=== PATIENT | male | born 1955 | race African-American/Black ===

== ENCOUNTER 2022-06-07 03:19 | Emergency (ER) | payer MEDICARE, BC ==
[2022-06-07] MEDS ORDERED: Morphine 4 MG/ML VIAL ONE (04:14)
[2022-06-07] MEDS ORDERED: Ondansetron PF 4 MG/2 ML Vial ONE (04:15)
[2022-06-07 04:39] LABS: Bilirubin Neg (Negative); Blood, Urine 150 (Negative); Clarity Cloudy (Clear); Glucose, Urine (Dipstick) Normal (Negative); Ketone, Urine Negative (Negative); Leukocyte 500 (Negative); Nitrite Negative (Negative); Protein, Urine (Dipstick) 30 mg/dl (Neg-Trace); Urobilinogen Normal mg/dL (Less than 2)
[2022-06-07 04:49] LABS: Bacteria/HPF 2+ HPF (None Seen); Squamous Epithelial 0-3 HPF (0-3); WBC/HPF Greater Than 50 HPF (0-3)
[2022-06-07 04:57] LABS: ALT (SGPT) Less than 6 U/L (8-55); AST (SGOT) 10 U/L (5-34); Albumin 3.2 g/dL (3.4-4.8); Alkaline Phosphatase 78 U/L (40-110); Anion Gap 17 mmol/L (10-20); BUN (Urea Nitrogen) 9 mg/dL (8.4-25.7); Bilirubin, Total 0.4 mg/dL (0.2-1.2); CK (CPK) 18 U/L (30-200); Calc. Creatinine Clearance 0 mL/min (70-130); Calcium 9.1 mg/dL (7.8-10.44); Carbon Dioxide 23 mmol/L (23-31); Chloride 103 mmol/L (98-107); Estimated GFR 66; Globulin 3.9 g/dL (2.4-3.5); Glucose 127 mg/dL (80-115); Magnesium 2.2 mg/dL (1.6-2.6); Potassium 3.6 mmol/L (3.5-5.1); Protein, Total 7.1 g/dL (5.8-8.1); Sodium 139 mmol/L (136-145)
[2022-06-07 04:58] LABS: #Eosinphils 0.3 10x3/uL (0.0-0.5); #Neutrophils 6.9 10x3/uL (1.5-8.4); %Basophils 0.4 % (0.0-2.0); %Eosinophils 3.2 % (0.0-6.0); %Lymphocytes 8.1 % (18.0-47.0); %Monocytes 11.1 % (0.0-10.0); %Neutrophils 76.8 % (40.0-75.0); Hemoglobin 9.2 g/dL (13.5-17.5); Mean Corpuscular HGB CONC 33.5 g/dL (32.0-36.0); Mean Corpuscular Hemoglobin 24.7 pg (27.0-33.0); Mean Corpuscular Volume 73.9 fl (81.2-95.1); Mean Platelet Volume 9.4 fl (7.4-10.4); Platelet Count 349 10x3/uL (150-450); RBC Distribution Width 22.7 % (11.5-14.5); Red Blood Cell (RBC) Count 3.72 10x6/uL (4.32-5.72); White Blood Cell (WBC) Count 8.9 10x3/uL (3.5-10.5)
[2022-06-07 05:13] LABS: Lipase Less than 4 U/L (8-78)
[2022-06-07] MEDS ORDERED: Iopamidol 300 61% 100 ML VIAL FS ONE (16:04)
== END 2022-06-07 07:25 | disposition home or self-care (01) ==
LOC: CSHERS 03:19
DX: N39.0 Urinary tract infection, site not specified (principal); F17.210 Nicotine dependence, cigarettes, uncomplicated
CPT/HCPCS: 74177; 80053; 81003; 81015; 82550; 83690; 83735; 85025; 96374; 96375; J2270; J2405; Q9967

== ENCOUNTER 2022-06-19 13:27 | Inpatient (IN) | payer MEDICARE, BC ==
[2022-06-19] MEDS ORDERED: Piperacillin/Tazobactam 3.375 GM VIAL ONE (14:12)
[2022-06-19 14:26] LABS: #Monocytes 0.1 10x3/uL (0.0-1.1); #Neutrophils 5.9 10x3/uL (1.5-8.4); %Basophils 0.1 % (0.0-2.0); %Eosinophils 0.4 % (0.0-6.0); %Neutrophils 86.1 % (40.0-75.0); Hemoglobin 8.9 g/dL (13.5-17.5); Mean Corpuscular HGB CONC 32.8 g/dL (32.0-36.0); Mean Corpuscular Hemoglobin 24.6 pg (27.0-33.0); Mean Corpuscular Volume 74.9 fl (81.2-95.1); Mean Platelet Volume 9.3 fl (7.4-10.4); Platelet Count 402 10x3/uL (150-450); RBC Distribution Width 22.8 % (11.5-14.5); Red Blood Cell (RBC) Count 3.62 10x6/uL (4.32-5.72); White Blood Cell (WBC) Count 6.9 10x3/uL (3.5-10.5)
[2022-06-19 14:27] LABS: ALT (SGPT) 8 U/L (8-55); AST (SGOT) 8 U/L (5-34); Albumin 3.1 g/dL (3.4-4.8); Alkaline Phosphatase 79 U/L (40-110); Anion Gap 14 mmol/L (10-20); BUN (Urea Nitrogen) 15 mg/dL (8.4-25.7); Bilirubin, Total 0.5 mg/dL (0.2-1.2); CRP (Inflammatory) 12.04 mg/dL (= or < 0.5); Calc. Creatinine Clearance 0 mL/min (70-130); Calcium 8.7 mg/dL (7.8-10.44); Carbon Dioxide 27 mmol/L (23-31); Chloride 102 mmol/L (98-107); Estimated GFR 80; Globulin 3.8 g/dL (2.4-3.5); Glucose 137 mg/dL (80-115); Protein, Total 6.9 g/dL (5.8-8.1); Sodium 140 mmol/L (136-145)
[2022-06-19 14:31] LABS: Potassium 2.8 mmol/L (3.5-5.1)
[2022-06-19 14:59] LABS: SARS-CoV-2 NAA Rapid Test Not Detected (NotDetected)
[2022-06-19] MEDS ORDERED: predniSONE 20 MG TAB ONE (15:23)
[2022-06-19 15:24] LABS: Anisocytosis SLIGHT = 6-15 cells (100X) (0-5/hpf)
[2022-06-19 15:25] LABS: Hypochromia SLIGHT = 6-15 cells (100X) (0-5/hpf); Microcytosis SLIGHT = 6-15 cells (100X) (0-5/hpf); Schistocytes SLIGHT = 2-5 cells (100X) (0-1/hpf)
[2022-06-19 15:28] LABS: Platelet Clumps SLIGHT
[2022-06-19 15:29] LABS: Platelet Morphology Comment Appears Increased
[2022-06-19] MEDS ORDERED: Potassium Chloride 20 MEQ TAB ONE (15:38)
[2022-06-19] MEDS ORDERED: Magnesium 2 GM/50 ML BAG (IN WATER) ONE (15:38)
[2022-06-19 15:39] LABS: Bilirubin Neg (Negative); Blood, Urine 150 (Negative); Glucose, Urine (Dipstick) Normal (Negative); Ketone, Urine Negative (Negative); Leukocyte 500 (Negative); Nitrite Negative (Negative); Protein, Urine (Dipstick) 100 mg/dl (Neg-Trace)
[2022-06-19] MEDS ORDERED: Potassium Chloride 20 MEQ/100 ML PREMIX BAG ONE (15:39)
[2022-06-19 15:45] LABS: Bacteria/HPF 2+ HPF (None Seen); Squamous Epithelial 0-3 HPF (0-3); WBC/HPF 21-50 HPF (0-3)
[2022-06-19] MEDS ORDERED: Electrolyte Replacement Protocol 1 EACH FS PRN (19:00)
[2022-06-19 19:48] VITALS: BMI 19.9
[2022-06-19] MEDS: Morphine 2 MG/ML VIAL SLOW IVP PRN (19:59)
[2022-06-19] MEDS: Acetaminophen 325 MG TAB PO PRN (20:00)
[2022-06-19] MEDS ORDERED: Piperacillin/Tazobactam 3.375 GM in Sodium Chloride 0.9% 100 ML IVPB SCH (21:00)
[2022-06-19 23:08] LABS: Potassium 3.7 mmol/L (3.5-5.1)
[2022-06-20] MEDS: Piperacillin/Tazobactam 3.375 GM in Sodium Chloride 0.9% 100 ML IVPB SCH ×3 (00:57→16:32)
[2022-06-20] MEDS: Acetaminophen 325 MG TAB PO PRN (01:02)
[2022-06-20] MEDS ORDERED: Ondansetron PF 4 MG/2 ML Vial IVP PRN (01:15)
[2022-06-20] MEDS ORDERED: Ondansetron ODT 4 MG TAB SL PRN (01:15)
[2022-06-20] MEDS ORDERED: Vancomycin HCl 1 GM in Sodium Chloride 0.9% 250 ML 250 ML IVPB SCH ×2 (03:00→05:00)
[2022-06-20 05:28] LABS: #Eosinphils 0.1 10x3/uL (0.0-0.5); #Monocytes 0.1 10x3/uL (0.0-1.1); #Neutrophils 4.6 10x3/uL (1.5-8.4); %Basophils 0.3 % (0.0-2.0); %Eosinophils 1.6 % (0.0-6.0); %Lymphocytes 15.3 % (18.0-47.0); %Monocytes 2.3 % (0.0-10.0); Hemoglobin 7.2 g/dL (13.5-17.5); Mean Corpuscular HGB CONC 31.7 g/dL (32.0-36.0); Mean Corpuscular Volume 75.7 fl (81.2-95.1); Mean Platelet Volume 9.3 fl (7.4-10.4); Platelet Count 315 10x3/uL (150-450); RBC Distribution Width 22.9 % (11.5-14.5); White Blood Cell (WBC) Count 5.8 10x3/uL (3.5-10.5)
[2022-06-20 05:30] LABS: Anion Gap 12 mmol/L (10-20); BUN (Urea Nitrogen) 15 mg/dL (8.4-25.7); Calc. Creatinine Clearance 66 mL/min (70-130); Calcium 8.3 mg/dL (7.8-10.44); Carbon Dioxide 25 mmol/L (23-31); Chloride 111 mmol/L (98-107); Estimated GFR 88; Glucose 90 mg/dL (80-115); Potassium 3.3 mmol/L (3.5-5.1); Sodium 145 mmol/L (136-145)
[2022-06-20] MEDS ORDERED: Potassium Chloride 20 MEQ TAB PO SCH ×2 (05:45→09:45)
[2022-06-20 06:33] LABS: Hypochromia SLIGHT = 6-15 cells (100X) (0-5/hpf); Microcytosis SLIGHT = 6-15 cells (100X) (0-5/hpf); Platelet Morphology Comment Appears Adequate
[2022-06-20 06:38] LABS: Schistocytes SLIGHT = 2-5 cells (100X) (0-1/hpf)
[2022-06-20 06:39] LABS: Anisocytosis SLIGHT = 6-15 cells (100X) (0-5/hpf)
[2022-06-20] MEDS: Morphine 2 MG/ML VIAL SLOW IVP PRN (08:35)
[2022-06-20] MEDS: Enoxaparin Sodium 40 MG/0.4 ML SYRINGE SC SCH ×2 (08:35→08:37)
[2022-06-20] MEDS: HYDROcodone/Acetaminophen 5/325 mg Tablet PO PRN ×2 (13:25→19:46)
[2022-06-20] MEDS: Vancomycin HCl 750 MG in Sodium Chloride 0.9% 250 ML 250 ML IVPB SCH (15:59)
[2022-06-21] MEDS: Piperacillin/Tazobactam 3.375 GM in Sodium Chloride 0.9% 100 ML IVPB SCH ×3 (01:04→17:42)
[2022-06-21] MEDS: HYDROcodone/Acetaminophen 5/325 mg Tablet PO PRN ×3 (01:11→14:46)
[2022-06-21 04:34] LABS: #Eosinphils 0.1 10x3/uL (0.0-0.5); #Monocytes 0.1 10x3/uL (0.0-1.1); #Neutrophils 3.2 10x3/uL (1.5-8.4); %Basophils 0.7 % (0.0-2.0); %Eosinophils 1.8 % (0.0-6.0); %Lymphocytes 20.8 % (18.0-47.0); %Monocytes 2.3 % (0.0-10.0); %Neutrophils 73.5 % (40.0-75.0); Hemoglobin 6.9 g/dL (13.5-17.5); Mean Corpuscular HGB CONC 32.1 g/dL (32.0-36.0); Mean Corpuscular Hemoglobin 24.6 pg (27.0-33.0); Mean Corpuscular Volume 76.5 fl (81.2-95.1); Platelet Count 308 10x3/uL (150-450); RBC Distribution Width 22.6 % (11.5-14.5); Red Blood Cell (RBC) Count 2.81 10x6/uL (4.32-5.72); White Blood Cell (WBC) Count 4.3 10x3/uL (3.5-10.5)
[2022-06-21 04:43] LABS: CRP (Inflammatory) 7.53 mg/dL (= or < 0.5); Vancomycin, Trough 14.6 ug/mL
[2022-06-21 04:46] LABS: Anion Gap 13 mmol/L (10-20); BUN (Urea Nitrogen) 10 mg/dL (8.4-25.7); Calc. Creatinine Clearance 67 mL/min (70-130); Calcium 8.3 mg/dL (7.8-10.44); Carbon Dioxide 23 mmol/L (23-31); Chloride 112 mmol/L (98-107); Estimated GFR 89; Glucose 90 mg/dL (80-115); Potassium 3.6 mmol/L (3.5-5.1); Sodium 144 mmol/L (136-145)
[2022-06-21] MEDS: Vancomycin HCl 750 MG in Sodium Chloride 0.9% 250 ML 250 ML IVPB SCH ×2 (05:08→16:00)
[2022-06-21] MEDS ORDERED: Ondansetron ODT 4 MG TAB PO SCH (06:15)
[2022-06-21] MEDS: Enoxaparin Sodium 40 MG/0.4 ML SYRINGE SC SCH (07:57)
[2022-06-21] MEDS ORDERED: Magnesium 2 GM/50 ML(in water) 2 GM in Premix Bag 1 BAG IVPB SCH (08:00)
[2022-06-21] MEDS: Morphine 4 MG/ML VIAL SLOW IVP PRN (18:52)
[2022-06-21] MEDS: Senokot S 8.6-50 MG TAB PO SCH (23:20)
[2022-06-22] MEDS: Piperacillin/Tazobactam 3.375 GM in Sodium Chloride 0.9% 100 ML IVPB SCH ×3 (02:00→15:47)
[2022-06-22] MEDS: Morphine 4 MG/ML VIAL SLOW IVP PRN (02:25)
[2022-06-22 05:02] LABS: #Eosinphils 0.1 10x3/uL (0.0-0.5); #Monocytes 0.1 10x3/uL (0.0-1.1); #Neutrophils 3.6 10x3/uL (1.5-8.4); %Basophils 0.9 % (0.0-2.0); %Eosinophils 1.3 % (0.0-6.0); %Lymphocytes 18.2 % (18.0-47.0); %Neutrophils 75.7 % (40.0-75.0); Hemoglobin 7.7 g/dL (13.5-17.5); Mean Corpuscular Hemoglobin 25.2 pg (27.0-33.0); Mean Corpuscular Volume 76.4 fl (81.2-95.1); Mean Platelet Volume 9.5 fl (7.4-10.4); Platelet Count 277 10x3/uL (150-450); RBC Distribution Width 21.6 % (11.5-14.5); Red Blood Cell (RBC) Count 3.05 10x6/uL (4.32-5.72); White Blood Cell (WBC) Count 4.7 10x3/uL (3.5-10.5)
[2022-06-22 05:13] LABS: Anion Gap 12 mmol/L (10-20); BUN (Urea Nitrogen) 8 mg/dL (8.4-25.7); Calc. Creatinine Clearance 72 mL/min (70-130); Calcium 8.2 mg/dL (7.8-10.44); Carbon Dioxide 22 mmol/L (23-31); Chloride 112 mmol/L (98-107); Estimated GFR 95; Glucose 92 mg/dL (80-115); Potassium 3.4 mmol/L (3.5-5.1); Sodium 143 mmol/L (136-145)
[2022-06-22] MEDS: Vancomycin HCl 750 MG in Sodium Chloride 0.9% 250 ML 250 ML IVPB SCH ×2 (06:00→19:05)
[2022-06-22] MEDS ORDERED: Potassium Chloride 20 MEQ TAB PO SCH (08:00)
[2022-06-22] MEDS: Senokot S 8.6-50 MG TAB PO SCH ×2 (09:58→21:46)
[2022-06-22] MEDS: HYDROcodone/Acetaminophen 5/325 mg Tablet PO PRN ×3 (10:05→21:47)
[2022-06-23] MEDS: Piperacillin/Tazobactam 3.375 GM in Sodium Chloride 0.9% 100 ML IVPB SCH ×3 (00:29→16:15)
[2022-06-23] MEDS ORDERED: Sodium Chloride 0.9% 250 ML 250 ML ONE (05:04)
[2022-06-23] MEDS ORDERED: Vancomycin HCl 750 MG VIAL ONE (05:04)
[2022-06-23] MEDS: Vancomycin HCl 750 MG in Sodium Chloride 0.9% 250 ML 250 ML IVPB SCH ×2 (05:06→18:10)
[2022-06-23 05:10] LABS: #Eosinphils 0.1 10x3/uL (0.0-0.5); #Monocytes 0.3 10x3/uL (0.0-1.1); #Neutrophils 5.1 10x3/uL (1.5-8.4); %Basophils 0.5 % (0.0-2.0); %Eosinophils 1.4 % (0.0-6.0); %Lymphocytes 13.5 % (18.0-47.0); %Monocytes 4.5 % (0.0-10.0); %Neutrophils 79.6 % (40.0-75.0); Hemoglobin 7.9 g/dL (13.5-17.5); Mean Corpuscular HGB CONC 32.9 g/dL (32.0-36.0); Mean Corpuscular Hemoglobin 25.2 pg (27.0-33.0); Mean Corpuscular Volume 76.7 fl (81.2-95.1); Mean Platelet Volume 9.1 fl (7.4-10.4); Platelet Count 285 10x3/uL (150-450); RBC Distribution Width 22.4 % (11.5-14.5); Red Blood Cell (RBC) Count 3.13 10x6/uL (4.32-5.72); White Blood Cell (WBC) Count 6.4 10x3/uL (3.5-10.5)
[2022-06-23 05:24] LABS: ALT (SGPT) 6 U/L (8-55); AST (SGOT) 6 U/L (5-34); Albumin 2.7 g/dL (3.4-4.8); Alkaline Phosphatase 58 U/L (40-110); Anion Gap 10 mmol/L (10-20); BUN (Urea Nitrogen) 7 mg/dL (8.4-25.7); Bilirubin, Total 0.4 mg/dL (0.2-1.2); Calc. Creatinine Clearance 69 mL/min (70-130); Calcium 8.3 mg/dL (7.8-10.44); Carbon Dioxide 23 mmol/L (23-31); Chloride 109 mmol/L (98-107); Estimated GFR 91; Globulin 3.2 g/dL (2.4-3.5); Glucose 110 mg/dL (80-115); Potassium 3.4 mmol/L (3.5-5.1); Protein, Total 5.9 g/dL (5.8-8.1); Sodium 139 mmol/L (136-145)
[2022-06-23] MEDS: HYDROcodone/Acetaminophen 5/325 mg Tablet PO PRN ×4 (05:26→21:13)
[2022-06-23 05:40] LABS: Anisocytosis SLIGHT = 6-15 cells (100X) (0-5/hpf); Platelet Morphology Comment Appears Adequate
[2022-06-23] MEDS ORDERED: Magnesium 2 GM/50 ML(in water) 2 GM in Premix Bag 1 BAG IVPB SCH (08:00)
[2022-06-23] MEDS ORDERED: Potassium Chloride 20 MEQ TAB PO SCH (08:00)
[2022-06-23] MEDS: Senokot S 8.6-50 MG TAB PO SCH ×2 (08:07→21:22)
[2022-06-24] MEDS: Piperacillin/Tazobactam 3.375 GM in Sodium Chloride 0.9% 100 ML IVPB SCH ×2 (00:06→07:53)
[2022-06-24] MEDS: HYDROcodone/Acetaminophen 5/325 mg Tablet PO PRN ×2 (04:33→10:48)
[2022-06-24 05:04] LABS: #Eosinphils 0.2 10x3/uL (0.0-0.5); #Monocytes 0.3 10x3/uL (0.0-1.1); #Neutrophils 4.3 10x3/uL (1.5-8.4); %Basophils 0.5 % (0.0-2.0); %Eosinophils 2.8 % (0.0-6.0); %Lymphocytes 16.1 % (18.0-47.0); %Monocytes 5.9 % (0.0-10.0); %Neutrophils 74.4 % (40.0-75.0); Hemoglobin 8.3 g/dL (13.5-17.5); Mean Corpuscular HGB CONC 32.9 g/dL (32.0-36.0); Mean Corpuscular Hemoglobin 25.4 pg (27.0-33.0); Mean Corpuscular Volume 77.1 fl (81.2-95.1); Mean Platelet Volume 9.2 fl (7.4-10.4); Platelet Count 302 10x3/uL (150-450); RBC Distribution Width 22.6 % (11.5-14.5); Red Blood Cell (RBC) Count 3.27 10x6/uL (4.32-5.72); White Blood Cell (WBC) Count 5.8 10x3/uL (3.5-10.5)
[2022-06-24 05:11] LABS: Anion Gap 13 mmol/L (10-20); BUN (Urea Nitrogen) 7 mg/dL (8.4-25.7); Calc. Creatinine Clearance 60 mL/min (70-130); Calcium 8.5 mg/dL (7.8-10.44); Carbon Dioxide 23 mmol/L (23-31); Chloride 108 mmol/L (98-107); Estimated GFR 77; Glucose 120 mg/dL (80-115); Magnesium 2.2 mg/dL (1.6-2.6); Potassium 3.6 mmol/L (3.5-5.1); Sodium 140 mmol/L (136-145); Vancomycin, Trough 21.4 ug/mL
[2022-06-24] MEDS: Vancomycin HCl 750 MG in Sodium Chloride 0.9% 250 ML 250 ML IVPB SCH (05:53)
[2022-06-24] MEDS ORDERED: Vancomycin HCl 500 MG in Sodium Chloride 0.9% 100 ML IVPB SCH (06:00)
[2022-06-24] MEDS: Morphine 4 MG/ML VIAL SLOW IVP PRN ×2 (07:50→15:02)
[2022-06-24] MEDS: Senokot S 8.6-50 MG TAB PO SCH (10:49)
[2022-06-24 12:14] VITALS: BP 108/58; TEMP 98.8
[2022-06-24] MEDS ORDERED: Iopamidol 300 61% 100 ML VIAL FS ONE (14:52)
== END 2022-06-24 16:05 | disposition home health service (06) | DRG 602 ==
LOC: CSHERS 13:27 → SUATTDRO 13:27 → CSHTELE 19:33
PROVIDERS: ADMIT Internal Medicine Hematology & Oncology; ATTEND Internal Medicine
PROC: 30233N1 Transfusion of Nonautologous Red Blood Cells into Peripheral Vein, Percutaneous Approach (ICD-10-PCS; principal; 2022-06-21)
DX: L02.31 Cutaneous abscess of buttock (principal); J18.9 Pneumonia, unspecified organism; K65.1 Peritoneal abscess; C20 Malignant neoplasm of rectum; N13.6 Pyonephrosis; J98.11 Atelectasis; K60.4 Rectal fistula; Z20.822 Contact with and (suspected) exposure to COVID-19; M60.9 Myositis, unspecified; E87.6 Hypokalemia; D64.81 Anemia due to antineoplastic chemotherapy; T45.1X5A Adverse effect of antineoplastic and immunosuppressive drugs, initial encounter; F17.210 Nicotine dependence, cigarettes, uncomplicated; R53.81 Other malaise; Z79.899 Other long term (current) drug therapy; M25.552 Pain in left hip
CPT/HCPCS: 36415; 36430; 71045; 74177; 80048; 80053; 80202; 81003; 81015; 83605; 83735; 85025; 85652; 86140; 86850; 86900; 86901; 87040; 87070; 87086; 87205; 93005; 94760; 96365; 96366; 96375; 97139; J1650; J2270; J2543; J3370; J3475; J3480; J3490; J7050; J7512; P9016; Q0162; Q9967; U0002

== ENCOUNTER 2022-10-27 11:00 | Inpatient (IN) | payer MEDICARE, BC ==
[2022-10-28 15:50] VITALS: BMI 18.7
[2022-10-30 07:12] LABS: SARS-CoV-2 NAA Rapid Test Not Detected (NotDetected)
[2022-10-30] MEDS ORDERED: Rocuronium Bromide 10 MG/ML (10ML VIAL) ONE (07:16)
[2022-10-30] MEDS ORDERED: PROPOFOL 20 ML ONE (07:16)
[2022-10-30] MEDS ORDERED: Fentanyl 100 MCG/2 ML VIAL ONE ×3 (07:16→10:16)
[2022-10-30] MEDS ORDERED: Lidocaine 1% PF 5 ML VIAL ONE (07:16)
[2022-10-30] MEDS ORDERED: ceFOXitin 1 GM VIAL ONE (07:26)
[2022-10-30] MEDS ORDERED: PHENYLEPHRINE-NS 100 MCG/ML 10 ML SYRINGE ONE (07:44)
[2022-10-30] MEDS ORDERED: ePHEDrine Sulfate 50 MG/10 ML VIAL ONE (07:47)
[2022-10-30] MEDS ORDERED: Dexamethasone 20 MG/5 ML VIAL ONE (07:48)
[2022-10-30] MEDS ORDERED: EPINEPHrine 1 MG/ML AMP ONE (07:51)
[2022-10-30] MEDS ORDERED: Bupivacaine PF 0.5% 30 ML VIAL ONE (07:51)
[2022-10-30] MEDS ORDERED: CEFAZOLIN 2 GM VIAL ONE (07:51)
[2022-10-30] MEDS ORDERED: Glycopyrrolate 0.2 MG/ML 5 ML SYRINGE ONE (08:36)
[2022-10-30] MEDS ORDERED: Ondansetron PF 4 MG/2 ML Vial ONE (08:36)
[2022-10-30] MEDS ORDERED: Ipratropium/Albuterol 3 ML NEB NEB PRN (09:13)
[2022-10-30] MEDS ORDERED: Promethazine HCl 25 MG/ML VIAL IM PRN (09:13)
[2022-10-30] MEDS ORDERED: Morphine 4 MG/ML VIAL SLOW IVP PRN (09:13)
[2022-10-30] MEDS ORDERED: hydrALAZINE 20 MG/ML VIAL SLOW IVP PRN (09:13)
[2022-10-30] MEDS ORDERED: Ondansetron PF 4 MG/2 ML Vial IVP PRN (09:13)
[2022-10-30] MEDS ORDERED: FLU VACC QS2022-23(65YR UP)/PF 240 MCG/0.7 ML SYRINGE IM ONE (13:00)
[2022-10-30] MEDS: Ketorolac Tromethamine 30 MG/ML VIAL IVP SCH ×2 (14:06→19:14)
[2022-10-30] MEDS: Morphine 2 MG/ML VIAL SLOW IVP PRN (21:27)
[2022-10-30] MEDS: Famotidine 20 MG TAB PO SCH (21:27)
[2022-10-31] MEDS: Ketorolac Tromethamine 30 MG/ML VIAL IVP SCH ×2 (01:15→06:03)
[2022-10-31] MEDS: Morphine 2 MG/ML VIAL SLOW IVP PRN (04:18)
[2022-10-31] MEDS: Famotidine 20 MG TAB PO SCH (08:40)
[2022-10-31] MEDS ORDERED: HYDROcodone/Acetaminophen 7.5/325 mg Tablet PO PRN ×2 (09:14)
[2022-10-31 11:03] VITALS: BP 132/61; TEMP 98.2
== END 2022-10-31 11:38 | disposition home or self-care (01) | DRG 330 ==
LOC: CSHERHOLD 10-30 06:05 → CSHTELE 10-30 12:12
PROVIDERS: ADMIT Surgery; ATTEND Surgery
PROC: 0D1L0Z4 Bypass Transverse Colon to Cutaneous, Open Approach (ICD-10-PCS; principal; 2022-10-30)
DX: C20 Malignant neoplasm of rectum (principal); C79.19 Secondary malignant neoplasm of other urinary organs; N13.30 Unspecified hydronephrosis; L02.215 Cutaneous abscess of perineum; N36.0 Urethral fistula; N32.1 Vesicointestinal fistula; K63.2 Fistula of intestine; Z20.822 Contact with and (suspected) exposure to COVID-19; Z79.899 Other long term (current) drug therapy; Z90.49 Acquired absence of other specified parts of digestive tract; Z98.890 Other specified postprocedural states; Z93.6 Other artificial openings of urinary tract status; F17.210 Nicotine dependence, cigarettes, uncomplicated
CPT/HCPCS: 80048; 83036; 85027; 86850; 86900; 86901; 93005; J0171; J0694; J1100; J1650; J1885; J2272; J2405; J2704; J3010; S0020; U0002

== ENCOUNTER 2022-10-27 11:25 | Outpatient (CLI) | payer MEDICARE, BC ==
[2022-10-27 12:56] LABS: Hemoglobin 8.6 g/dL (13.5-17.5); Mean Corpuscular HGB CONC 31.2 g/dL (32.0-36.0); Mean Corpuscular Hemoglobin 24.3 pg (27.0-33.0); Mean Platelet Volume 9.7 fl (7.4-10.4); Platelet Count 418 10x3/uL (150-450); RBC Distribution Width 20.9 % (11.5-14.5); Red Blood Cell (RBC) Count 3.54 10x6/uL (4.32-5.72); White Blood Cell (WBC) Count 5.9 10x3/uL (3.5-10.5)
[2022-10-27 13:14] LABS: Anion Gap 14 mmol/L (10-20); BUN (Urea Nitrogen) 15 mg/dL (8.4-25.7); Calc. Creatinine Clearance 0 mL/min (70-130); Calcium 9.2 mg/dL (7.8-10.44); Carbon Dioxide 23 mmol/L (23-31); Chloride 110 mmol/L (98-107); Estimated GFR 65; Glucose 107 mg/dL (80-115); Potassium 3.8 mmol/L (3.5-5.1); Sodium 143 mmol/L (136-145)
[2022-10-27 16:45] LABS: Hemoglobin A1c 4.9 % (4.0-6.0)
== END 2022-10-27 11:26 | disposition home or self-care (01) ==
LOC: CSHLAB 11:25
PROVIDERS: ATTEND Surgery
DX: Z01.818 Encounter for other preprocedural examination (principal)
CPT/HCPCS: 80048; 83036; 85027; 93005; 93010